=== PATIENT | female | born 1990 | race Caucasian/White ===

== ENCOUNTER 2018-06-06 18:32 | Emergency (ER) | payer OTHER ==
[~2018-06-06] VITALS: Ht 167.6 cm; Wt 85.7 kg
[~2018-06-06 18:32] MED LIST: AUGMENTIN 875875 MG PO; BIRTH CONTROL; CIPRO250 M1 PO; CIPROFLOXACIN500 M1 PO; DARVOCET-N 1001 EACH PO; MEDROLDOSEPACK; NAPROSYN500 MG PO; PYRIDIUM200 MG PO; VISTARIL 25 MG25 M1 PO; XANAX 0.5 MG0.5 M1 PO
[2018-06-06] MEDS ORDERED: LITHATE20 MG PO (18:40)
[2018-06-06] MEDS ORDERED: PRISTIQ ER25 MG PO (18:41)
[2018-06-06 18:59] LABS: HEMATOCRIT 38.4 % (37.0-47.0); MCH 29.8 pg (26.0-34.0); MCV 87.7 fL (80.0-100.0); MPV 7.4 fl. (7.2-11.1); RBC 4.37 mil/uL (4.20-5.00); RDW-CV 13.3 % (10.5-14.5); WBC 7.9 thou/uL (4.0-11.0)
[2018-06-06 19:17] LABS: ALBUMIN 3.7 g/dL (3.4-5.0); CALCIUM 9.1 mg/dL (8.5-10.1); CREATININE 0.7 mg/dL (0.6-1.3); POTASSIUM 3.3 mmol/L (3.5-5.1); SALICYLATE 3.9 mg/dL (2.8-20.0); TOTAL BILIRUBIN 0.1 mg/dL (<0.1-1.0); TOTAL PROTEIN 7.2 g/dL (6.4-8.2)
[2018-06-06 19:28] LABS: URINE BILIRUBIN NEGATIVE (Negative); URINE BLOOD NEGATIVE (Negative); URINE CLARITY CLEAR; URINE COLOR YELLOW; URINE GLUCOSE-RANDOM NEGATIVE (Negative); URINE KETONES NEGATIVE (Negative); URINE LEUKOCYTES NEGATIVE (Negative); URINE NITRITE NEGATIVE (Negative); URINE PROTEIN NEGATIVE (Negative); URINE SPECIFIC GRAVITY <= 1.005 (1.005-1.030); URINE UROBILINOGEN 0.2 E.U./dl (0.2-1.0)
[2018-06-06 19:35] LABS: AMP/METHAMP Negative (Negative); BARBITURATES Negative (Negative); BENZODIAZEPINES POSITIVE (Negative); COCAINE Negative (Negative); METHADONE Negative (Negative); OPIATES Negative (Negative); PCP Negative (Negative); THC Negative (Negative)
[2018-06-06 23:38] LABS: ACETAMINOPHEN 10 ug/mL (10-30); ALCOHOL 45 mg/dL (<10); SALICYLATE < 2.8 mg/dL (2.8-20.0)
--- NOTE | 2018-06-07 11:09 | EKG ---
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 OLIVARES : 1990 Requested By: Maryann De La O Order Number: [id number] MD: Petey Huitron Measurements Intervals [place] Rate: 126 P: 82 W[place]: 130 QRS: 70 QRSD: 97 T: 4 QT: 334 QTc: 484 Interpretive Statements Sinus tachycardia Borderline T abnormalities, diffuse leads Borderline prolonged QT interval No previous ECG available for comparison Electronically Signed On 06-07-2018 11:09:09 CDT by Petey Huitron [email or web address] <ELECTRONICALLY SIGNED> By: Petey Huitron MD, [facility] 06/07/18 1109 1845 1845 Petey Huitron MD, FACC /EPI
[2018-06-07 18:10] VITALS: BP 109/63
== END 2018-06-07 18:10 ==
LOC: M.ERS 18:32
PROVIDERS: Family Medicine; Personal Emergency Response Attendant
DX: T42.4X1A Poisoning by benzodiazepines, accidental (unintentional), initial encounter (principal); Y92.89 Other specified places as the place of occurrence of the external cause; R45.851 Suicidal ideations; F41.9 Anxiety disorder, unspecified